=== PATIENT | male | born 1990 | race Hispanic/Latino ===

== ENCOUNTER 2017-01-12 10:45 | Emergency (ER) | payer BC, OTHER ==
[2017-01-12 11:25] VITALS: TEMP 98; O2SAT 99
[2017-01-12] MEDS ORDERED: Oxycodone/Acetaminophen 5/325 mg Tab PO STA (15:04)
--- NOTE | 2017-01-12 15:10 | ED PDOC ---
Lower Extremity Pain/Injury Time Seen by Provider: 01/12/17 11:47 Chief Complaint (Nursing): Lower Extremity Problem/Injury Chief Complaint (Provider): Left knee pain since last night History Per: Patient History/Exam Limitations: no limitations Onset/Duration Of Symptoms: Hrs Current Symptoms Are (Timing): Still Present Severity: Severe Pain Scale Rating Of: 9 Additional Complaint(s): Pt states he was playing basketball. States he had his foot planted and twisted. Pt reports a popping sensation inside. Pt has history of torn ACL. Pt states he already made an appointment with his orthopedic for next week. No medications for pain today. Past Medical History Reviewed: Historical Data, Nursing Documentation, Vital Signs Vital Signs: Last Vital Signs Temp 98 F 01/12/17 11:23 Pulse 65 01/12/17 11:23 Resp 20 01/12/17 11:23 BP 139/99 H 01/12/17 13:47 Pulse Ox 99 01/12/17 11:23 - Medical History PMH: No Chronic Diseases - Surgical History Surgical History: No Surg Hx - Family History Family History: States: Unknown Family Hx - Living Arrangements Living Arrangements: With Family - Social History Current smoker - smoking cessation education provided: No Alcohol: None Drugs: Denies - Home Medications Home Medications: Ambulatory Orders Medication Instructions Recorded oxyCODONE/Acetaminophen [Percocet 1 ea PO Q6H PRN #15 tab 01/12/17 5/325 mg Tab] - Allergies Allergies/Adverse Reactions: Allergies Allergy/AdvReac Type Severity Reaction Status Date / Time No Known Allergies Allergy Verified 01/12/17 11:22 Review of Systems ROS Statement: Except As Marked, All Systems Reviewed And Found Negative Musculoskeletal: Positive for: Other Physical Exam - Reviewed Nursing Documentation Reviewed: Yes Vital Signs Reviewed: Yes - Physical Exam Appears: Positive for: Well, Non-toxic, No Acute Distress Head Exam: Positive for: ATRAUMATIC, NORMAL INSPECTION, NORMOCEPHALIC Skin: Positive for: Normal Color, Warm, DRY Eye Exam: Positive for: Normal appearance ENT: Positive for: Normal ENT Inspection Neck: Positive for: Normal, Painless ROM Respiratory: Negative for: Accessory Muscle Use, Respiratory Distress Back: Positive for: Normal Inspection Extremity: Positive for: Normal ROM, Other ((+) anterior drawer, knee non- tender ) Neurologic/Psych: Positive for: Alert, Oriented - ECG O2 Sat by Pulse Oximetry: 99 Disposition - Clinical Impression Clinical Impression: Knee injury - Patient ED Disposition Is Patient to be Admitted: No Counseled Patient/Family Regarding: Diagnosis, Need For Followup, Rx Given - Disposition Referrals: formerly [facility] [Outside] Nelly Mistry MD [Staff Provider] - Disposition: Routine/Home Disposition Time: 15:27 Condition: GOOD Additional Instructions: Ice, elevation, motrin. Please follow-up with orthopedics. Prescriptions: oxyCODONE/Acetaminophen [Percocet 5/325 mg Tab] 1 ea PO Q6H PRN #15 tab PRN Reason: Pain, Severe (8-10) Instructions: ACL Injury (ED)
[2017-01-12] MEDS ORDERED: Oxycodone/Acetaminophen 5/325 mg Tab ONE (15:15)
[2017-01-12 15:29] VITALS: BP 143/79; PULSE 75; RESP 16
--- NOTE | 2017-01-12 16:05 | RAD ---
PROCEDURE: Left Knee Radiographs. HISTORY: Pain. COMPARISON: None. FINDINGS: BONES: No evidence of acute fracture or dislocation. Post surgical changes suggestive of prior cruciate ligament fixation. JOINTS: Normal. No osteoarthritis. JOINT EFFUSION: None. OTHER FINDINGS: None. IMPRESSION: No evidence of acute pathology.
== END 2017-01-12 16:27 | disposition home or self-care (01) ==
LOC: H.ER 10:45
DX: M25.562 Pain in left knee (principal)

== ENCOUNTER 2017-03-12 04:23 | Inpatient (IN) | payer BC ==
--- NOTE | 2017-03-12 04:46 | ED PDOC ---
Lower Extremity Pain/Injury Time Seen by Provider: 03/12/17 04:30 Chief Complaint (Nursing): Lower Extremity Problem/Injury Chief Complaint (Provider): Lower Extremity Problem/Injury History Per: Patient History/Exam Limitations: no limitations Onset/Duration Of Symptoms: Days Current Symptoms Are (Timing): Still Present Additional Complaint(s): 27 y/o male who presents to the emergency with a complaint of a left knee pain status post left knee surgery on February 24, [address] Jack (Orthopedist). Associated with swelling and pain to the site. Patient was seen at ED in [facility] in [place], [place] and found to have an infection on operative site. Reports having a knee aspiration with fluid analysis consistent with a wound infection. Denies vomiting, diarrhea, fever, cough, shortness of breath, and chest pain. Of note, patient received antibiotics: vancomycin, ancef, and gentamicin at the referring facility for the left knee wound infection status post operation. Past Medical History Reviewed: Historical Data, Nursing Documentation, Vital Signs Vital Signs: Last Vital Signs Temp 97.7 F 03/12/17 04:29 Pulse 103 H 03/12/17 04:29 Resp 16 03/12/17 04:29 BP 154/76 H 03/12/17 04:29 Pulse Ox 98 03/12/17 04:29 - Medical History PMH: No Chronic Diseases - Surgical History Other surgeries: Left knee surgery - Family History Family History: States: No Known Family Hx - Social History Current smoker - smoking cessation education provided: No Alcohol: None Drugs: Denies - Home Medications Home Medications: Ambulatory Orders Medication Instructions Recorded oxyCODONE/Acetaminophen [Percocet 1 ea PO Q6H PRN #15 tab 01/12/17 5/325 mg Tab] - Allergies Allergies/Adverse Reactions: Allergies Allergy/AdvReac Type Severity Reaction Status Date / Time vancomycin Allergy RASH Verified 03/12/17 13:05 Review of Systems ROS Statement: Except As Marked, All Systems Reviewed And Found Negative Constitutional: Negative for: Fever Cardiovascular: Negative for: Chest Pain Respiratory: Negative for: Cough, Shortness of Breath Gastrointestinal: Negative for: Vomiting, Diarrhea Musculoskeletal: Positive for: Leg Pain (with swelling), Other (Left knee pain) Physical Exam - Reviewed Nursing Documentation Reviewed: Yes Vital Signs Reviewed: Yes - Physical Exam Appears: Positive for: Non-toxic, No Acute Distress Head Exam: Positive for: ATRAUMATIC, NORMOCEPHALIC Cardiovascular/Chest: Positive for: Tachycardia Extremity: Positive for: Other (dressing to left knee noted to have serosanguinous drainage) Neurologic/Psych: Positive for: Alert, Oriented - ECG O2 Sat by Pulse Oximetry: 98 (RA) Pulse Ox Interpretation: Normal Medical Decision Making Medical Decision Making: Time: 04:30 Initial impression: 27 y/o male with left knee pain Initial plan: --Dextrose 5%/0.45% NS 1L 1,000 ml IV 125 mls/hr --IV Insertion --Case discussed with Dr. Jakc who had previously accepted patient at this facility for left knee post op infection wash out --Dr. Jack is on schedule for AM Wash out of the Left knee at 6:30 am. --Admitted to hospital as Inpatient to Med/Surg for Left Knee Post Operative Wound Infection under service Dr. Charline Merino (admitting hospitalist). Scribe Attestation: Documented by July Reynolds, acting as a scribe for Slava Maddox MD. Provider Scribe Attestation: All medical record entries made by the Scribe were at my direction and personally dictated by me. I have reviewed the chart and agree that the record accurately reflects my personal performance of the history, physical exam, medical decision making, and the department course for this patient. I have also personally directed, reviewed, and agree with the discharge instructions and disposition. Disposition - Clinical Impression Clinical Impression: Postoperative infection of knee - Patient ED Disposition Is Patient to be Admitted: Yes - Disposition Disposition Time: 04:30 Condition: FAIR - Pt Status Changed To: Hospital Disposition Of: Inpatient - Admit Certification Admit to Inpatient:: After my assessment, the patient will require hospitalization for at least two midnights. This is because of the severity of symptoms shown, intensity of services needed, and/or the medical risk in this patient being treated as an outpatient. - POA Present On Arrival: Surgical Site Infection (left knee)
[2017-03-12] MEDS: Dextrose 5%/0.45% NS 1,000 ML IV SCH ×2 (05:19→13:19)
--- NOTE | 2017-03-12 05:28 | CP.PCM.HP ---
History of Present Illness - History of Present Illness History of Present Illness: CC: L knee pain HPI: This is a 27 y/o male with no chronic medical conditions who states that he has an ACL injury pending surgery. He had gone in for a staging and removal of meniscus ~02/24. The initial procedure went without complications, but then he noted that the surgical incision had opened up slightly about mid week last week. At the time he had no problem, but since yesterday zane he noted some pain in the area and swelling. While he was riding the train last night, the pain and swelling became significantly worse and was accompanied by chills, but no fever, so he went into [facility]. He was given IV Vanc, gent, and ancef there and transferred here. Here he has no new complaints. Denies any f/c/ n/v/d. Pain is controlled. ROS: 14 systems reviewed, negative other than HPI MHx: None SHx: ACL repair of same knee in the past, recent meniscus surgery/staging Allergies: NKDA Medications: Ativan PRN Family Hx: Gout in father Social Hx: Lives with roommate, no significant EtOH (socially), no tobacco Present on Admission - Present on Admission Any Indicators Present on Admission: No Past Patient History - Past Social History Alcohol: None Drugs: Denies - PSYCHIATRIC Hx Substance Use: No - SURGICAL HISTORY Hx Surgeries: Yes Other/Comment: ACLS repair to left knee - ANESTHESIA Hx Anesthesia: Yes Hx Anesthesia Reactions: No Hx Malignant Hyperthermia: No Meds Allergies/Adverse Reactions: Allergies Allergy/AdvReac Type Severity Reaction Status Date / Time No Known Allergies Allergy Verified 01/12/17 11:22 Physical Exam - Constitutional Appears: No Acute Distress - Head Exam Head Exam: ATRAUMATIC, NORMOCEPHALIC - Eye Exam Eye Exam: EOMI, PERRL - ENT Exam ENT Exam: Mucous Membranes Moist - Neck Exam Neck exam: Positive for: Full Rom - Respiratory Exam Respiratory Exam: Clear to Auscultation Bilateral, NORMAL BREATHING PATTERN - Cardiovascular Exam Cardiovascular Exam: REGULAR RHYTHM, +S1, +S2 - GI/Abdominal Exam GI & Abdominal Exam: Normal Bowel Sounds, Soft - Extremities Exam Extremities exam: Positive for: joint swelling, tenderness Additional comments: L knee with swelling, tenderness, warmth, limited ROM - Neurological Exam Neurological exam: Alert, CN II-XII Intact, Oriented x3 - Psychiatric Exam Psychiatric exam: Normal Affect, Normal Mood - Skin Additional comments: warmth over L knee Results - Vital Signs Recent Vital Signs: Last Vital Signs Temp 97.7 F 03/12/17 04:29 Pulse 103 H 03/12/17 04:29 Resp 16 03/12/17 04:29 BP 154/76 H 03/12/17 04:29 Pulse Ox 98 03/12/17 05:21 Assessment & Plan (1) Infection of left knee Assessment and Plan: 27 y/o male with L knee infection in setting of recent surgery. -ADmit med-surg, pending OR this AM -Pain mgmt -Patient rec'd Vanc, ancef, gentamycin at other hospital, will consult ID for post-op antibiotic recommendations (Curtis) -Surgery aware (Guero) -No DVT PPx as this time, as pending surgery this AM Status: Acute (2) DVT prophylaxis Status: Acute
[2017-03-12] MEDS ORDERED: Midazolam 2 MG/2 ML VIAL ONE (06:40)
[2017-03-12] MEDS ORDERED: Propofol 10 mg/ml Inj (20 ML) ONE ×2 (06:40→07:12)
[2017-03-12] MEDS ORDERED: Succinylcholine 200 mg/10 ml Inj IV ONE (06:41)
[2017-03-12] MEDS ORDERED: Bupivacaine 0.5% Inj(30mL) ONE (06:41)
[2017-03-12] MEDS ORDERED: Lidocaine 1% Inj (20ml) ONE (06:41)
[2017-03-12] MEDS ORDERED: Lactated Ringer's 1,000 ML IV ONE (08:00)
[2017-03-12] MEDS ORDERED: Gentamicin 100mg/100ml NS 100 MG/100 ML BAG IVPB SCH (09:00)
[2017-03-12] MEDS: HYDROmorphone 0.5 mg/0.5 ml ISec IVP PRN ×2 (09:05→09:20)
--- NOTE | 2017-03-12 09:29 | CON ---
DATE: 03/12/2017 HISTORY OF PRESENT ILLNESS: The patient is a 27-year-old male who had an ACL injury. The patient szymanski d a history of ACL reconstruction by another orthopedist approximately 7 years ago. The patient unde rwent revision ACL by me 2 weeks ago. At that point due to malpositioning of a tunnel, we had to sta ge the procedure. The patient underwent partial meniscectomy and also allograft bone plug for the ti bial tunnel. The patient reports that, a few days ago, he fell onto his left knee. He had slight jaramillo perficial opening of the wound. The patient was seen by me on Tuesday, 2 days ago, in the clinic w hen the wound was closed and there was no drainage. There was no sign of infection and no fever or c hills. The patient had no difficulty bearing weight and had full range of motion. The wound was hany aned and Steri-Strips were applied. The patient was instructed to remain weightbearing. Afterwards, the patient tried to call office yesterday that he had worsening of the left knee pain symptoms and there was increased amount of drainage in the left knee. The patient was instructed to go to local E mergency Room. The knee was aspirated and showed 66,000 cell count consistent with septic arthritis at that point. The patient was transferred back to [facility] for admission a nd arthroscopic drainage and removal of bone plug. PHYSICAL EXAMINATION: GENERAL: The patient is comfortable. EXTREMITIES: There is swelling of the knee. There is drainage from the tibial tunnel site. Limited range of motion secondary to pain. Neurovascularly intact distally. ASSESSMENT AND PLAN: A 27-year-old male with postoperative septic arthritis. TREATMENT: I had a detailed discussion with the patient and his mother at bedside, explaining the co mplex nature of this injury. We will plan for left knee arthroscopy, irrigation and debridement, rem oval of bone plug and all foreign bodies and all indicated procedures. The risks include, but are no t limited to bleeding, infection, nerve/vessel damage, continued pain, stiffness, continued persisten t infection, need for further surgery among others. They fully understood the risks and the benefit and opted to proceed. Mark Anthony Jack MD cc: [id number] TT: 03/12/2017 09:28:16 Confirmation # [id number] Dictation # [id number] tn
--- NOTE | 2017-03-12 11:02 | OP ---
PROCEDURE DATE: 03/12/2017 ATTENDING PHYSICIAN: Mark Anthony Jack MD. DESKTOP ADMINISTRATOR: None. PREOPERATIVE DIAGNOSIS: Left knee septic arthritis. POSTOPERATIVE DIAGNOSIS: Left knee septic arthritis. PROCEDURE PERFORMED: 1. Left knee arthroscopic major synovectomy. 2. Removal of foreign body. 3. Irrigation and debridement. 4. Removal of infected bone graft. ANESTHESIA: General. ESTIMATED BLOOD LOSS: 10 mL. COMPLICATIONS: None. HISTORY: The patient is a 44-orcg-mlq-male who underwent a left knee arthroscopy, bone plug of tibial tunnel, partial medial lateral meniscectomy 2 weeks ago. The patient had an uneventful postoperative course until he fell and had a slight dehiscence with a superficial wound. The patient was seen by me a few days ago in the office on Tuesday. The wound was closed, with no drainage. A Steri-Strip was applied. The patient was instructed to be weightbearing as tolerated. The patient had called my office yesterday with increasing amount of pain and drainage from the wound site. At that point I had instructed the patient to visit a local emergency room. The patient went to the local emergency room and the knee aspirate was consistent with left knee septic arthritis. At that point, patient was transferred to [facility] for irrigation and debridement and removal of the bone plug. I reviewed the risks and benefits of the surgery in detail. The risks included but were not limited to bleeding, infection, neuro vessel damage, continued pain , continued infection, need for further surgery, stiffness blood clot, among others. The patient fully understood the risks and the benefits and opted to proceed with the surgery. DESCRIPTION OF PROCEDURE: The patient was brought to operating room table. He underwent general anesthesia. A padded tourniquet was applied to patient's left thigh. The left knee was secured in the leg timmons, left knee was prepped and draped in standard sterile manner. First a timeout was completed, confirmed the patient's left knee to be the correct operative site. First using an Esmarch, the knee was exsanguinated and the tourniquet was inflated to 300 mmHg. First using the old incision and portals, we took 4 sets of cultures for identification of the organism. There was anton pus upon opening of the previous portal. The arthroscope was placed into the joint and there was noted to be extensive tricompartmental synovitis and purulent fluid. Using an aggressive shaver, an extensive synovectomy of all 3 compartments was performed. All the purulent material was drained. The joint was irrigated with nearly 12 L of normal saline. For removal of the bone plug, a guide pin was drilled into the previous tibial tunnel and using the 12 mm reamer the tibial tunnel was drilled and allograft bone plug was removed. Finally we washed the joint with extra 6 L of fluid until all the synovium and infected material was removed. A BETTY drain was placed. The portals were closed using 4- 0 nylon sutures. The tibial tunnel incision was closed using 3-0 PDS and 3-0 nylon sutures. A sterile dressing was applied. Tourniquet was deflated. The patient was placed in a knee immobilizer. His postoperative instructions included weightbearing as tolerated with the knee in a knee immobilizer. There were no complications of surgery. Mark Anthony Jack MD cc: [id number] TT: 03/12/2017 11:01:20 jn MTDD
[2017-03-12] MEDS ORDERED: DiphenhydrAMINE 50 mg/ml Inj IVP PRN (11:14)
[2017-03-12] MEDS: Cefepime 1 GM in Sodium Chloride 0.9% 100 ML IVPB SCH ×2 (13:18→20:11)
[2017-03-12 19:54] LABS: RBC URINE 3 /hpf (0-3); URINE BACTERIA RARE (<OCC); URINE BILIRUBIN NEGATIVE (NEGATIVE); URINE BLOOD NEGATIVE (NEGATIVE); URINE COLOR YELLOW (YELLOW); URINE GLUCOSE (UA) NEG (Normal); URINE KETONE NEGATIVE (NEGATIVE); URINE LEUKOCYTE ESTERASE NEG Leu/uL (Negative); URINE PROTEIN NEGATIVE (NEGATIVE); URINE UROBILINOGEN 0.2-1.0 mg/dL (0.2-1.0); WBC URINE 2 /hpf (0-5)
[2017-03-13 08:11] LABS: BASO % 0.6 % (0.0-2.0); EOS % 0.6 % (0.0-4.0); HEMATOCRIT 38.5 % (35.0-51.0); LYMPH # 1.1 K/uL (1.0-4.3); LYMPH % 13.8 % (20.0-40.0); MEAN CELL VOLUME 94.2 fl (80.0-94.0); MEAN CORPUSCULAR HEMOGLOBIN 32.5 pg (27.0-31.0); MEAN CORPUSCULAR HGB CONC 34.6 g/dL (33.0-37.0); MEAN PLATELET VOLUME 7.1 fl (7.2-11.7); MONO # 1.1 K/uL (0.0-0.8); MONO % 14.5 % (0.0-10.0); NEUT # 5.4 K/uL (1.8-7.0); NEUT % 70.5 % (50.0-75.0); RED CELL DISTRIBUTION WIDTH 12.2 % (11.5-14.5); WHITE BLOOD COUNT 7.7 K/uL (4.8-10.8)
[2017-03-13 08:16] LABS: ALB/GLOB RATIO 1.5 (1.0-2.1); ALKALINE PHOSPHATASE 44 U/L (38-126); ALT/SGPT 34 U/L (21-72); AST/SGOT 28 U/L (17-59); BILIRUBIN,TOTAL 0.8 mg/dl (0.2-1.3); BLOOD UREA NITROGEN 9 mg/dl (9-20); CALCIUM 8.8 mg/dL (8.4-10.2); CARBON DIOXIDE 30 mmol/L (22-30); CHLORIDE 97 mmol/L (98-107); GFR AFRICAN-AMERICAN > 60; GLUCOSE,RANDOM 130 mg/dL (75-110); POTASSIUM 3.4 MMOL/L (3.6-5.0); SODIUM 136 mmol/l (132-148); TOTAL PROTEIN 6.7 G/DL (6.3-8.2)
[2017-03-13] MEDS: Cefepime 1 GM in Sodium Chloride 0.9% 100 ML IVPB SCH ×2 (08:52→20:30)
[2017-03-13] MEDS ORDERED: Potassium Chloride 20 mEq ER Tab PO ONE (09:40)
--- NOTE | 2017-03-13 14:24 | CP.PCM.CON ---
History of Present Illness - History of Present Illness History of Present Illness: 27 y/o male who presents to the emergency with a complaint of a left knee pain status post left knee surgery on February 24, [address] Jack (Orthopedist). Associated with swelling and pain to the site. Patient was seen at ED in [facility] in [place], [place] and found to have an infection on operative site. Reports having a knee aspiration with fluid analysis consistent with a wound infection. Denies vomiting, diarrhea, fever, cough, shortness of breath, and chest pain. Of note, patient received antibiotics: vancomycin, ancef, and gentamicin at the referring facility for the left knee wound infection status post operation. + HX OF LEFT KNEE INJURY IN [facility] UPON ADMISSION HERE UNDERWENT LEFT KNEE WASHOUT WITH CULTURES AND STARTED ON IV ANTIBIOTICS FOR PRESUMED SEPTIC ARTHRITIS REPORTEDLY DEVELOPED REDNESS ON RIGHT ARM WITH VANCO WHICH WAS HELD STARTED ON CUBICIN / CEFEPIME EMPIRICALLY PENDING CULTURES Review of Systems - Constitutional Constitutional: As Per HPI - EENT Eyes: absent: As Per HPI, Blind Spots, Blurred Vision, Change in Vision, Decreased Night Vision, Diplopia, Discharge, Dry Eye, Exophthalmos, Floaters, Irritation, Itchy Eyes, Loss of Peripheral Vision, Pain, Photophobia, Requires Corrective Lenses, Sees Flashes, Spots in Vision, Tunnel Vision, Other Visual Disturbances, Loss of Vision, Other Ears: absent: As Per HPI, Decreased Hearing, Ear Discharge, Ear Pain, Tinnitus, Abnormal Hearing, Disequilibrium, Dizziness, Other Nose/Mouth/Throat: absent: As Per HPI, Epistaxis, Nasal Congestion, Nasal Discharge, Nasal Obstruction, Nasal Trauma, Nose Pain, Post Nasal Drip, Sinus Pain, Sinus Pressure, Bleeding Gums, Change in Voice, Dental Pain, Dry Mouth, Dysphagia, Halitosis, Hoarsness, Lip Swelling, Mouth Lesions, Mouth Pain, Odynophagia, Sore Throat, Throat Swelling, Tongue Swelling, Facial Pain, Neck Pain, Neck Mass, Other - Cardiovascular Cardiovascular: absent: As Per HPI, Acrocyanosis, Chest Pain, Chest Pain at Rest , Chest Pain with Activity, Claudication, Diaphoresis, Dyspnea, Dyspnea on Exertion, Edema, Irregular Heart Rhythm, Pain Radiating to Arm/Neck/Jaw, Leg Edema, Leg Ulcers, Lightheadedness, Orthopnea, Palpitations, Paroxysmal Nocturnal Dyspnea, Pedal Edema, Radiating Pain, Rapid Heart Rate, Slow Heart Rate, Syncope, Other - Respiratory Respiratory: absent: As Per HPI, Cough, Dyspnea, Hemoptysis, Dyspnea on Exertion , Wheezing, Snoring, Stridor, Pain on Inspiration, Chest Congestion, Excessive Mucous Production, Change in Mucous Color, Pain with Coughing, Other - Gastrointestinal Gastrointestinal: absent: As Per HPI, Abdominal Pain, Belching, Bloating, Change in Bowel Habits, Change in Stool Character, Coffee Ground Emesis, Constipation, Cramping, Diarrhea, Dyspepsia, Dysphagia, Early Satiety, Excessive Flatus, Fecal Incontinence, Heartburn, Hematemesis, Hematochezia, Loose Stools, Melena, Nausea, Odynophagia, Temesmus, Vomiting, Other - Genitourinary Genitourinary: absent: As Per HPI, Change in Urinary Stream, Difficulty Urinating, Dysuria, Flank Pain, Hematuria, Pyuria, Nocturia, Urinary Incontinence, Urinary Frequency, Urinary Hesitance, Urinary Urgency, Voiding Freq/Small Amts, Freq UTI, Hx Renal/Bladder Calculi, Hx /Renal Surgery, Bladder Distension, Other - Musculoskeletal Musculoskeletal: As Per HPI - Integumentary Integumentary: absent: As Per HPI, Acne, Alopecia, Bleeding Lesions, Change in Hair, Change in Nails, Change in Pigmentation, Changing Lesions, Dry Skin, Erythema, Furuncle, Hirsutism, Lesions, New Lesions, Non-Healing Lesions, Photosensitivity, Pruritus, Rash, Skin Pain, Skin Ulcer, Sores, Striae, Swelling , Unusual Bruising, Wounds, Jaundice, Other - Neurological Neurological: absent: As Per HPI, Abnormal Gait, Abnormal Hearing, Abnormal Movements, Abnormal Speech, Behavioral Changes, Burning Sensations, Confusion, Convulsions, Disequilibrium, Dizziness, Numbness, Focal Weakness, Frequent Falls , Headaches, Lack of Coordination, Loss of Vision, Memory Loss, Paresthesias, Radicular Pain, Restless Legs, Sensory Deficit, Syncope, Tingling, Tremor, Vertigo, Weakness, Other Visual Disturbances, Other - Psychiatric Psychiatric: absent: As Per HPI, Abnormal Sleep Pattern, Anhedonia, Anxiety, Auditory Hallucinations, Behavioral Changes, Change in Appetite, Change in Libido, Confusion, Depression, Difficulty Concentrating, Hallucinations, Homicidal Ideation, Hopelessness, Irritability, Memory Loss, Mood Swings, Panic Attacks, Paranoia, Suicidal Ideation, Visual Hallucinations, Tactile Hallucinations, Other - Endocrine Endocrine: absent: As Per HPI, Change in Body Appearance, Change in Libido, Cold Intolorance, Deepening of Voice, Excessive Sweating, Fatigue, Flushing, Heat Intolorance, Increase in Ring/Shoe/Hat Size, Palpitations, Polydipsia, Polyphagia, Polyuria, Other - Hematologic/Lymphatic Hematologic: absent: As Per HPI, Easy Bleeding, Easy Bruising, Lymphadenopathy, Other Past Patient History - Past Medical History & Family History Past Medical History?: No - Past Social History Alcohol: None Drugs: Denies - HEMATOLOGICAL/ONCOLOGICAL Hx AIDS: No Hx Human Immunodeficiency Virus (HIV): No - MUSCULOSKELETAL/RHEUMATOLOGICAL Hx Falls: No - PSYCHIATRIC Hx Substance Use: No - SURGICAL HISTORY Hx Surgeries: Yes Hx Musculoskeletal Surgery: Yes (left knee acl repair 2010, and 02/24/17) Other/Comment: ACLS repair to left knee - ANESTHESIA Hx Anesthesia: Yes Hx Anesthesia Reactions: No Hx Malignant Hyperthermia: No Meds Allergies/Adverse Reactions: Allergies Allergy/AdvReac Type Severity Reaction Status Date / Time vancomycin Allergy RASH Verified 03/12/17 13:05 - Medications Medications: Current Medications Acetaminophen (Tylenol 325mg Tab) 650 mg PO Q4 PRN PRN Reason: Fever >100.4 F Last Admin: 03/13/17 11:24 Dose: 650 mg Diphenhydramine HCl (Benadryl) 25 mg IVP Q6 PRN PRN Reason: Rash Last Admin: 03/12/17 11:41 Dose: 25 mg Dextrose/Sodium Chloride (Dextrose 5%/0.45% Ns 1000 Ml) 1,000 mls @ 125 mls/hr IV .Q8H [facility] Last Admin: 03/12/17 13:19 Dose: 125 mls/hr Cefepime HCl 1 gm/ Sodium (Chloride) 100 mls @ 100 mls/hr IVPB Q12 [facility] Last Admin: 03/13/17 08:52 Dose: 100 mls/hr Daptomycin 570 mg/ Sodium (Chloride) 100 mls @ 100 mls/hr IVPB DAILY@1500 [facility] Stop: 03/17/17 11:46 Morphine Sulfate (Morphine) 2 mg IVP Q4 PRN PRN Reason: Pain, moderate (4-7) Last Admin: 03/12/17 20:08 Dose: 2 mg Morphine Sulfate (Morphine) 1 mg IVP Q4 PRN PRN Reason: Pain, Mild (1-3) Last Admin: 03/12/17 11:46 Dose: 1 mg Ondansetron HCl (Zofran Inj) 4 mg IVP Q6 PRN PRN Reason: Nausea/Vomiting Physical Exam - Constitutional Appears: Non-toxic - Head Exam Head Exam: ATRAUMATIC, NORMAL INSPECTION, NORMOCEPHALIC - Eye Exam Eye Exam: EOMI, PERRL. absent: Scleral icterus - ENT Exam ENT Exam: Mucous Membranes Dry, Normal External Ear Exam - Neck Exam Neck exam: Negative for: Lymphadenopathy - Respiratory Exam Respiratory Exam: Decreased Breath Sounds, Clear to Auscultation Bilateral - Cardiovascular Exam Cardiovascular Exam: REGULAR RHYTHM, +S1, +S2 - GI/Abdominal Exam GI & Abdominal Exam: Diminished Bowel Sounds, Soft. absent: Tenderness - Rectal Exam Rectal Exam: Deferred - Exam Exam: NORMAL INSPECTION - Extremities Exam Extremities exam: Positive for: pedal pulses present. Negative for: calf tenderness, normal inspection, pedal edema, tenderness Additional comments: LEFT KNEE WITH DRAIN IN PLACE - Back Exam Back exam: absent: CVA tenderness (L), CVA tenderness (R), paraspinal tenderness - Neurological Exam Neurological exam: Alert, CN II-XII Intact, Oriented x3, Reflexes Normal - Psychiatric Exam Psychiatric exam: Normal Affect, Normal Mood - Skin Skin Exam: Dry, Intact Results - Vital Signs Recent Vital Signs: Last Vital Signs Temp 100.6 F H 03/13/17 11:24 Pulse 97 H 03/13/17 07:43 Resp 20 03/13/17 07:43 BP 137/84 03/13/17 07:43 Pulse Ox 96 03/13/17 07:43 - Labs Result Diagrams: 03/13/17 05:30 03/13/17 05:30 Labs: Laboratory Results - last 24 hr 03/12/17 03/13/17 03/13/17 18:30 05:30 05:30 WBC 7.7 RBC 4.09 L Hgb 13.3 Hct 38.5 MCV 94.2 H MCH 32.5 H MCHC 34.6 RDW 12.2 Plt Count 209 MPV 7.1 L Neut % (Auto) 70.5 Lymph % (Auto) 13.8 L Starke % (Auto) 14.5 H Eos % (Auto) 0.6 Baso % (Auto) 0.6 Neut # 5.4 Lymph # 1.1 Starke # 1.1 H Eos # 0.0 Baso # 0.0 Sodium 136 Potassium 3.4 L Chloride 97 L Carbon Dioxide 30 Anion Gap 12 BUN 9 Creatinine 1.1 Est GFR ( Amer) > 60 Est GFR (Non-Af Amer) > 60 Random Glucose 130 H Calcium 8.8 Total Bilirubin 0.8 AST 28 ALT 34 Alkaline Phosphatase 44 Total Creatine Kinase 65 Total Protein 6.7 Albumin 3.9 Globulin 2.7 Albumin/Globulin Ratio 1.5 Urine Color Yellow Urine Clarity Clear Urine pH 5.0 Ur Specific [place] 1.020 Urine Protein Negative Urine Glucose (UA) Neg Urine Ketones Negative Urine Blood Negative Urine Nitrate Negative Urine Bilirubin Negative Urine Urobilinogen 0.2-1.0 Ur Leukocyte Esterase Neg Urine RBC (Auto) 3 Urine Microscopic WBC 2 Ur Squamous Epith Cells < 1 Urine Bacteria Rare Assessment & Plan (1) Infection of left knee Status: Acute (2) Postoperative infection of knee Status: Acute - Assessment and Plan (Free Text) Assessment: CONT IV ANTIBIOTICS PENDING CULTURES MAY NEED 21 DAYS RX FOR SEPTIC ARTHRITIS CONSIDER FOLLOW UP MRI TO R/O OM
--- NOTE | 2017-03-13 14:31 | CP.PCM.PCO ---
Physician Communication Note - Physician Communication Note Physician Communication Note: care transfered to dr. mason covered for dr rose
--- NOTE | 2017-03-13 16:03 | CP.PCM.PN ---
Subjective - Date & Time of Evaluation Date of Evaluation: 03/13/17 Time of Evaluation: 11:45 - Subjective Subjective: 27 yo M admitted with Left Knee Postoperative septic arthritis, s/p surgery day #1 Patient seen and examined at bedside, no acute distress at this time, pain well controlled. spiking low grade fever, Tmax: 100.6. Otherwise feeling well, denies: CP, SOB, calf pain, abdominal pain, N/V/D. ID was consulted Dr. Acevedo, Daptomycin and Cefepime ordered. ptaient had allergic reaction to Vancomycin reason why was changed to Daptomycin. Objective - Vital Signs/Intake and Output Vital Signs (last 24 hours): Temp Pulse Resp BP Pulse Ox 98.3 F 93 H 17 131/82 96 03/13/17 15:44 03/13/17 15:44 03/13/17 15:44 03/13/17 15:44 03/13/17 15:44 Intake and Output: 03/13/17 03/13/17 06:59 18:59 Intake Total 1900 Output Total 900 Balance 1000 - Medications Medications: Current Medications Acetaminophen (Tylenol 325mg Tab) 650 mg PO Q4 PRN PRN Reason: Fever >100.4 F Last Admin: 03/13/17 11:24 Dose: 650 mg Diphenhydramine HCl (Benadryl) 25 mg IVP Q6 PRN PRN Reason: Rash Last Admin: 03/12/17 11:41 Dose: 25 mg Dextrose/Sodium Chloride (Dextrose 5%/0.45% Ns 1000 Ml) 1,000 mls @ 125 mls/hr IV .Q8H [facility] Last Admin: 03/12/17 13:19 Dose: 125 mls/hr Cefepime HCl 1 gm/ Sodium (Chloride) 100 mls @ 100 mls/hr IVPB Q12 [facility] Last Admin: 03/13/17 08:52 Dose: 100 mls/hr Daptomycin 570 mg/ Sodium (Chloride) 100 mls @ 100 mls/hr IVPB DAILY@1500 [facility] Stop: 03/17/17 11:46 Last Admin: 03/13/17 14:59 Dose: 100 mls/hr Morphine Sulfate (Morphine) 2 mg IVP Q4 PRN PRN Reason: Pain, moderate (4-7) Last Admin: 03/12/17 20:08 Dose: 2 mg Morphine Sulfate (Morphine) 1 mg IVP Q4 PRN PRN Reason: Pain, Mild (1-3) Last Admin: 03/12/17 11:46 Dose: 1 mg Ondansetron HCl (Zofran Inj) 4 mg IVP Q6 PRN PRN Reason: Nausea/Vomiting - Labs Labs: 03/13/17 05:30 03/13/17 05:30 - Constitutional Appears: No Acute Distress - Head Exam Head Exam: ATRAUMATIC, NORMOCEPHALIC - Eye Exam Eye Exam: Normal appearance - ENT Exam ENT Exam: Mucous Membranes Moist - Respiratory Exam Respiratory Exam: Clear to Ausculation Bilateral. absent: Rhonchi, Wheezes, Respiratory Distress - Cardiovascular Exam Cardiovascular Exam: RRR, +S1, +S2. absent: JVD - GI/Abdominal Exam GI & Abdominal Exam: Soft, Normal Bowel Sounds. absent: Tenderness - Extremities Exam Extremities Exam: absent: Calf Tenderness, Pedal Edema Additional comments: Lef knee: knee inmobilizer, BETTY drain on place, minimal serosanguineous drainage noticed. neurovascular intact - Neurological Exam Neurological Exam: Alert, CN II-XII Intact, Oriented x3 - Psychiatric Exam Psychiatric exam: Normal Affect, Normal Mood - Skin Skin Exam: Dry, Normal Color, Warm Assessment and Plan - Assessment and Plan (Free Text) Plan: 27 y/o male with L knee infection in setting of recent surgery Left Knee postoperative septic arhtritis. s/p arthroscopic major synovectomy, day #1 -c/w Pain mgmt - Abx: Daptomycin ( day 2) and Cefepime( day 3) - ID on board Dr. Acevedo ( recommended total ABx course of 21 days) - Ortho Dr. Jack on board DVT prophylaxis SCD for now.
[2017-03-13] MEDS: Dextrose 5%/0.45% NS 1,000 ML IV SCH (21:01)
[2017-03-14 07:11] LABS: BASO % 0.4 % (0.0-2.0); EOS # 0.2 K/uL (0.0-0.7); EOS % 2.7 % (0.0-4.0); HEMATOCRIT 37.4 % (35.0-51.0); LYMPH # 1.5 K/uL (1.0-4.3); LYMPH % 20.7 % (20.0-40.0); MEAN CELL VOLUME 94.7 fl (80.0-94.0); MEAN CORPUSCULAR HEMOGLOBIN 32.6 pg (27.0-31.0); MEAN CORPUSCULAR HGB CONC 34.4 g/dL (33.0-37.0); MEAN PLATELET VOLUME 7.2 fl (7.2-11.7); MONO % 13.5 % (0.0-10.0); NEUT # 4.5 K/uL (1.8-7.0); NEUT % 62.7 % (50.0-75.0); RED CELL DISTRIBUTION WIDTH 12.8 % (11.5-14.5); WHITE BLOOD COUNT 7.1 K/uL (4.8-10.8)
[2017-03-14 07:31] LABS: ALB/GLOB RATIO 1.3 (1.0-2.1); ALKALINE PHOSPHATASE 45 U/L (38-126); ALT/SGPT 31 U/L (21-72); AST/SGOT 33 U/L (17-59); BILIRUBIN,TOTAL 0.8 mg/dl (0.2-1.3); BLOOD UREA NITROGEN 10 mg/dl (9-20); CALCIUM 9.1 mg/dL (8.4-10.2); CARBON DIOXIDE 30 mmol/L (22-30); CHLORIDE 99 mmol/L (98-107); GFR AFRICAN-AMERICAN > 60; GLUCOSE,RANDOM 95 mg/dL (75-110); POTASSIUM 4.1 MMOL/L (3.6-5.0); SODIUM 137 mmol/l (132-148)
[2017-03-14] MEDS: Cefepime 1 GM in Sodium Chloride 0.9% 100 ML IVPB SCH ×2 (08:56→21:36)
[2017-03-14] MEDS ORDERED: Docusate-Senna 50 mg-8.6 mg Tab PO SCH (10:42)
--- NOTE | 2017-03-14 10:44 | CP.PCM.PN ---
Subjective - Date & Time of Evaluation Date of Evaluation: 03/14/17 Time of Evaluation: 07:40 - Subjective Subjective: 27 yo M admitted with Left Knee Postoperative septic arthritis, s/p surgery day #2 Patient was seen and examined at bedside this morning. Patient reports that left knee pain is well controlled without pain medications, 10/26. Denies tingling, numbness in left lower extremity. Patient had a low grade fever of 99.8 F at midnight. Denies chills, nausea, vomiting, abdominal pain or other complains. Objective - Vital Signs/Intake and Output Vital Signs (last 24 hours): Temp Pulse Resp BP Pulse Ox 98.7 F 82 20 136/74 98 03/14/17 08:07 03/14/17 08:07 03/14/17 08:07 03/14/17 08:07 03/14/17 08:07 Intake and Output: 03/14/17 03/14/17 06:59 18:59 Intake Total 100 Balance 100 - Medications Medications: Current Medications Acetaminophen (Tylenol 325mg Tab) 650 mg PO Q4 PRN PRN Reason: Fever >100.4 F Last Admin: 03/13/17 11:24 Dose: 650 mg Diphenhydramine HCl (Benadryl) 25 mg IVP Q6 PRN PRN Reason: Rash Last Admin: 03/12/17 11:41 Dose: 25 mg Cefepime HCl 1 gm/ Sodium (Chloride) 100 mls @ 100 mls/hr IVPB Q12 [facility] Last Admin: 03/14/17 08:56 Dose: 100 mls/hr Daptomycin 570 mg/ Sodium (Chloride) 100 mls @ 100 mls/hr IVPB DAILY@1500 [facility] Stop: 03/17/17 11:46 Last Admin: 03/13/17 14:59 Dose: 100 mls/hr Morphine Sulfate (Morphine) 2 mg IVP Q4 PRN PRN Reason: Pain, moderate (4-7) Last Admin: 03/12/17 20:08 Dose: 2 mg Morphine Sulfate (Morphine) 1 mg IVP Q4 PRN PRN Reason: Pain, Mild (1-3) Last Admin: 03/12/17 11:46 Dose: 1 mg Ondansetron HCl (Zofran Inj) 4 mg IVP Q6 PRN PRN Reason: Nausea/Vomiting - Labs Labs: 03/14/17 06:30 03/14/17 06:30 - Additional Findings Additional findings: Constitutional Appears: No Acute Distress - Head Exam Head Exam: ATRAUMATIC, NORMOCEPHALIC - Eye Exam Eye Exam: Normal appearance - ENT Exam ENT Exam: Mucous Membranes Moist - Respiratory Exam Respiratory Exam: Clear to Ausculation Bilateral. absent: Rhonchi, Wheezes, Respiratory Distress - Cardiovascular Exam Cardiovascular Exam: RRR, +S1, +S2. absent: JVD - GI/Abdominal Exam GI & Abdominal Exam: Soft, Normal Bowel Sounds. absent: Tenderness - Extremities Exam Extremities Exam: absent: Calf Tenderness, Pedal Edema Additional comments: Lef knee: knee inmobilizer, BETTY drain on place, minimal serosanguineous drainage noticed. neurovascular intact - Neurological Exam Neurological Exam: Alert, CN II-XII Intact, Oriented x3 - Psychiatric Exam Psychiatric exam: Normal Affect, Normal Mood - Skin Skin Exam: Dry, Normal Color, Warm Assessment and Plan - Assessment and Plan (Free Text) Assessment: 27 yo M admitted with Left Knee Postoperative septic arthritis, s/p surgery day #2. Plan: Left Knee postoperative septic arhtritis. s/p arthroscopic major synovectomy, Day #2 -Improving -No leukocytosis. -c/w Pain management -Abx: Daptomycin ( day 3) and Cefepime( day 4) -May need 21 days treatment for septic arthritis as per ID recommendations -ID on board Dr. Acevedo -F/U wound cultures -Consider PICC line if terminal operations manager IV antibiotics -building and construction manager for possible IV antibiotics at home -Ortho Dr. Jack on board. F/U recommendations -PT evaluation DVT prophylaxis SCD for now. Consider starting Lovenox SC 40 mg
--- NOTE | 2017-03-14 13:23 | CP.PCM.PN ---
Subjective - Date & Time of Evaluation Date of Evaluation: 03/14/17 Time of Evaluation: 08:00 - Subjective Subjective: COMFORTABLE THIS AM DENIES FEVER CHILLS OR KNEE PAIN LEFT KNEE DRAIN IN PLACE WITH SOME SEROSANGUINOUS DISCHARGE FAMILY AT THE BEDSIDE Objective - Vital Signs/Intake and Output Vital Signs (last 24 hours): Temp Pulse Resp BP Pulse Ox 98.7 F 82 20 136/74 98 03/14/17 08:07 03/14/17 08:07 03/14/17 08:07 03/14/17 08:07 03/14/17 11:00 Intake and Output: 03/14/17 03/14/17 06:59 18:59 Intake Total 100 Balance 100 - Medications Medications: Current Medications Acetaminophen (Tylenol 325mg Tab) 650 mg PO Q4 PRN PRN Reason: Fever >100.4 F Last Admin: 03/13/17 11:24 Dose: 650 mg Diphenhydramine HCl (Benadryl) 25 mg IVP Q6 PRN PRN Reason: Rash Last Admin: 03/12/17 11:41 Dose: 25 mg Cefepime HCl 1 gm/ Sodium (Chloride) 100 mls @ 100 mls/hr IVPB Q12 [facility] Last Admin: 03/14/17 08:56 Dose: 100 mls/hr Daptomycin 570 mg/ Sodium (Chloride) 100 mls @ 100 mls/hr IVPB DAILY@1500 [facility] Stop: 03/17/17 11:46 Last Admin: 03/13/17 14:59 Dose: 100 mls/hr Morphine Sulfate (Morphine) 2 mg IVP Q4 PRN PRN Reason: Pain, moderate (4-7) Last Admin: 03/12/17 20:08 Dose: 2 mg Morphine Sulfate (Morphine) 1 mg IVP Q4 PRN PRN Reason: Pain, Mild (1-3) Last Admin: 03/12/17 11:46 Dose: 1 mg Ondansetron HCl (Zofran Inj) 4 mg IVP Q6 PRN PRN Reason: Nausea/Vomiting Senna/Docusate Sodium (Senokot S 50 Mg-8.6 Mg) 2 tab PO HS [facility] - Labs Labs: 03/14/17 06:30 03/14/17 06:30 - Constitutional Appears: Non-toxic - Head Exam Head Exam: ATRAUMATIC, NORMAL INSPECTION, NORMOCEPHALIC - Eye Exam Eye Exam: EOMI, PERRL. absent: Scleral icterus - ENT Exam ENT Exam: Mucous Membranes Dry, Normal External Ear Exam - Neck Exam Neck Exam: absent: Lymphadenopathy - Respiratory Exam Respiratory Exam: Decreased Breath Sounds, Clear to Ausculation Bilateral - Cardiovascular Exam Cardiovascular Exam: REGULAR RHYTHM, +S1, +S2 - GI/Abdominal Exam GI & Abdominal Exam: Distended, Soft. absent: Tenderness - Rectal Exam Rectal Exam: Deferred - Exam Exam: NORMAL INSPECTION - Extremities Exam Extremities Exam: absent: Calf Tenderness, Pedal Edema, Tenderness - Back Exam Back Exam: absent: CVA tenderness (L), CVA tenderness (R), paraspinal tenderness - Neurological Exam Neurological Exam: Alert, Awake, CN II-XII Intact, Oriented x3 - Psychiatric Exam Psychiatric exam: Normal Mood - Skin Skin Exam: Dry, Intact Assessment and Plan (1) Infection of left knee Status: Acute (2) Postoperative infection of knee Status: Acute - Assessment and Plan (Free Text) Assessment: SEPTIC ARTHRITIS IMPROVING S/P WASHOUT INITIAL CULTURE + MSSA ( COULD GO HOME ON ANCEF 2G TID OR CUBICIN ONCE DAILY ) MAY NEED FURTHER WASHOUT TO DISCUSS WITH ORTHO
[2017-03-15] MEDS: Cefepime 1 GM in Sodium Chloride 0.9% 100 ML IVPB SCH (08:51)
--- NOTE | 2017-03-15 10:48 | CP.PCM.PN ---
Subjective - Date & Time of Evaluation Date of Evaluation: 03/15/17 Time of Evaluation: 08:00 - Subjective Subjective: less pain no fever for d/c home on IV rx follow up as out pt Objective - Vital Signs/Intake and Output Vital Signs (last 24 hours): Temp Pulse Resp BP Pulse Ox 98.5 F 79 20 116/73 97 03/15/17 08:29 03/15/17 08:29 03/15/17 08:29 03/15/17 08:29 03/15/17 08:29 Intake and Output: 03/15/17 03/15/17 06:59 18:59 Intake Total 100 Balance 100 - Medications Medications: Current Medications Acetaminophen (Tylenol 325mg Tab) 650 mg PO Q4 PRN PRN Reason: Fever >100.4 F Last Admin: 03/13/17 11:24 Dose: 650 mg Diphenhydramine HCl (Benadryl) 25 mg IVP Q6 PRN PRN Reason: Rash Last Admin: 03/12/17 11:41 Dose: 25 mg Cefepime HCl 1 gm/ Sodium (Chloride) 100 mls @ 100 mls/hr IVPB Q12 [facility] Last Admin: 03/15/17 08:51 Dose: 100 mls/hr Daptomycin 570 mg/ Sodium (Chloride) 100 mls @ 100 mls/hr IVPB DAILY@1500 [facility] Stop: 03/17/17 11:46 Last Admin: 03/14/17 15:44 Dose: 100 mls/hr Morphine Sulfate (Morphine) 2 mg IVP Q4 PRN PRN Reason: Pain, moderate (4-7) Last Admin: 03/12/17 20:08 Dose: 2 mg Morphine Sulfate (Morphine) 1 mg IVP Q4 PRN PRN Reason: Pain, Mild (1-3) Last Admin: 03/12/17 11:46 Dose: 1 mg Ondansetron HCl (Zofran Inj) 4 mg IVP Q6 PRN PRN Reason: Nausea/Vomiting Senna/Docusate Sodium (Senokot S 50 Mg-8.6 Mg) 2 tab PO HS [facility] Last Admin: 03/14/17 21:37 Dose: Not Given - Labs Labs: 03/14/17 06:30 03/14/17 06:30 - Constitutional Appears: Non-toxic, Chronically Ill - Head Exam Head Exam: NORMOCEPHALIC - Eye Exam Eye Exam: PERRL. absent: Scleral icterus - ENT Exam ENT Exam: Mucous Membranes Dry - Neck Exam Neck Exam: absent: Lymphadenopathy - Respiratory Exam Respiratory Exam: Decreased Breath Sounds, Clear to Ausculation Bilateral - Cardiovascular Exam Cardiovascular Exam: REGULAR RHYTHM, +S1, +S2 - GI/Abdominal Exam GI & Abdominal Exam: Distended, Soft. absent: Tenderness - Rectal Exam Rectal Exam: Deferred - Exam Exam: NORMAL INSPECTION - Extremities Exam Extremities Exam: absent: Calf Tenderness, Pedal Edema - Back Exam Back Exam: absent: CVA tenderness (L), CVA tenderness (R) - Neurological Exam Neurological Exam: Alert, Awake, Oriented x3 Assessment and Plan (1) Infection of left knee Status: Acute (2) Postoperative infection of knee Status: Acute - Assessment and Plan (Free Text) Assessment: cont rx x 3 weeks
[2017-03-15] MEDS ORDERED: Lidocaine 1% Inj (20ml) ONE (10:55)
--- NOTE | 2017-03-15 11:16 | PCM.SURG1 ---
Surgeon's Initial Post Op Note - Surgeon's Notes Surgeon: Kathy Short Appliance Sales Associate: NONE Type of Anesthesia: Local Pre-Operative Diagnosis: Knee infection Operative Findings: Patent right basilic vein. Post-Operative Diagnosis: Knee infection Operation Performed: Single lumen picc placement right basilic vein, 41 cm. Tip in SVC. Specimen/Specimens Removed: none Estimated Blood Loss: EBL {In ML}: 2 Blood Products Given: N/A Drains Used: No Drains Post-Op Condition: Fair Date of Surgery/Procedure: 03/15/17 Time of Surgery/Procedure: 11:10
[2017-03-15 11:21] VITALS: BP 130/77; PULSE 76; RESP 18; TEMP 98.7; O2SAT 100
--- NOTE | 2017-03-15 12:37 | CP.PCM.DIS ---
<AgustinkristalEtta - Last Filed: 03/15/17 17:59> Provider - Provider Date of Admission: 03/12/17 04:37 Attending physician: Sherley Don MD Time Spent in preparation of Discharge (in minutes): 30 Diagnosis - Discharge Diagnosis (1) Infection of left knee Status: Acute Priority: High (2) Postoperative infection of knee Status: Acute Priority: High Hospital Course - Lab Results Lab Results: Micro Results 03/12/17 11:44 Knee - Left Gram Stain - Final 03/12/17 11:44 Knee - Left Wound Culture - Final Staphylococcus Aureus 03/12/17 11:44 Knee - Left Gram Stain - Final 03/12/17 11:44 Knee - Left Wound Culture - Final Staphylococcus Aureus 03/12/17 11:44 Knee - Left Gram Stain - Final 03/12/17 11:44 Knee - Left Wound Culture - Final Staphylococcus Aureus 03/12/17 11:44 Knee - Left Gram Stain - Final 03/12/17 11:44 Knee - Left Wound Culture - Final Staphylococcus Aureus Most Recent Lab Values WBC 7.1 K/uL (4.8-10.8) 03/14/17 06:30 RBC 3.95 Mil/uL (4.40-5.90) L 03/14/17 06:30 Hgb 12.9 g/dL (12.0-18.0) 03/14/17 06:30 Hct 37.4 % (35.0-51.0) 03/14/17 06:30 MCV 94.7 fl (80.0-94.0) H 03/14/17 06:30 MCH 32.6 pg (27.0-31.0) H 03/14/17 06:30 MCHC 34.4 g/dL (33.0-37.0) 03/14/17 06:30 RDW 12.8 % (11.5-14.5) 03/14/17 06:30 Plt Count 212 K/uL (130-400) 03/14/17 06:30 MPV 7.2 fl (7.2-11.7) 03/14/17 06:30 Neut % (Auto) 62.7 % (50.0-75.0) 03/14/17 06:30 Lymph % (Auto) 20.7 % (20.0-40.0) 03/14/17 06:30 [place] % (Auto) 13.5 % (0.0-10.0) H 03/14/17 06:30 Eos % (Auto) 2.7 % (0.0-4.0) 03/14/17 06:30 Baso % (Auto) 0.4 % (0.0-2.0) 03/14/17 06:30 Neut # 4.5 K/uL (1.8-7.0) 03/14/17 06:30 Lymph # 1.5 K/uL (1.0-4.3) 03/14/17 06:30 [place] # 1.0 K/uL (0.0-0.8) H 03/14/17 06:30 Eos # 0.2 K/uL (0.0-0.7) 03/14/17 06:30 Baso # 0.0 K/uL (0.0-0.2) 03/14/17 06:30 ESR 63 mm/hr (0-15) H 03/14/17 06:30 Sodium 137 mmol/l (132-148) 03/14/17 06:30 Potassium 4.1 MMOL/L (3.6-5.0) 03/14/17 06:30 Chloride 99 mmol/L (98-107) 03/14/17 06:30 Carbon Dioxide 30 mmol/L (22-30) 03/14/17 06:30 Anion Gap 13 (10-20) 03/14/17 06:30 BUN 10 mg/dl (9-20) 03/14/17 06:30 Creatinine 1.1 mg/dL (0.8-1.5) 03/14/17 06:30 Est GFR ( Amer) > 60 03/14/17 06:30 Est GFR (Non-Af Amer) > 60 03/14/17 06:30 Random Glucose 95 mg/dL (75-110) 03/14/17 06:30 Uric Acid 3.6 mg/Dl (3.5-8.5) 03/13/17 19:15 Calcium 9.1 mg/dL (8.4-10.2) 03/14/17 06:30 Total Bilirubin 0.8 mg/dl (0.2-1.3) 03/14/17 06:30 AST 33 U/L (17-59) 03/14/17 06:30 ALT 31 U/L (21-72) 03/14/17 06:30 Alkaline Phosphatase 45 U/L (38-126) 03/14/17 06:30 Total Creatine Kinase 65 U/L (55-170) 03/13/17 05:30 C-React Prot High Sens > 15.00 mg/L (1.00-3.00) H 03/14/17 06:30 Total Protein 7.0 G/DL (6.3-8.2) 03/14/17 06:30 Albumin 3.9 g/dL (3.5-5.0) 03/14/17 06:30 Globulin 3.1 gm/dL (2.2-3.9) 03/14/17 06:30 Albumin/Globulin Ratio 1.3 (1.0-2.1) 03/14/17 06:30 Urine Color Yellow (YELLOW) 03/12/17 18:30 Urine Clarity Clear (Clear) 03/12/17 18:30 Urine pH 5.0 (5.0-8.0) 03/12/17 18:30 Ur Specific [place] 1.020 (1.003-1.030) 03/12/17 18:30 Urine Protein Negative mg/dL (NEGATIVE) 03/12/17 18:30 Urine Glucose (UA) Neg mg/dL (Normal) 03/12/17 18:30 Urine Ketones Negative mg/dL (NEGATIVE) 03/12/17 18:30 Urine Blood Negative (NEGATIVE) 03/12/17 18:30 Urine Nitrate Negative (NEGATIVE) 03/12/17 18:30 Urine Bilirubin Negative (NEGATIVE) 03/12/17 18:30 Urine Urobilinogen 0.2-1.0 mg/dL (0.2-1.0) 03/12/17 18:30 Ur Leukocyte Esterase Neg Lori/uL (Negative) 03/12/17 18:30 Urine RBC (Auto) 3 /hpf (0-3) 03/12/17 18:30 Urine Microscopic WBC 2 /hpf (0-5) 03/12/17 18:30 Ur Squamous Epith Cells < 1 /hpf (0-5) 03/12/17 18:30 Urine Bacteria Rare (<OCC) 03/12/17 18:30 - Hospital Course Hospital Course: 27 y/o male with no significant past medical history, s/p Left Knee postoperative septic arhtritis, s/p arthroscopic major synovectomy on POD day 3. During admission patient was managed by Orthopedic, ID , and PMD. Wound culture was positive for MSSA and patient was managed with IV antibiotics as per ID recommendation. Patient was seen and examined at bedside this morning, and he was cleared by Ortho and ID to be discharged home in IV Daptomycin to complete 3 weeks of treatment as per ID recommendations. Patient got a PICC line today, and he tolerated procedure well. Will f/u with PMD, ID, and Ortho as outpatient. - Date & Time of H&P Date of H&P: 03/12/17 Time of H&P: 05:20 Discharge Exam - Eye Exam Eye Exam: Normal appearance - ENT Exam ENT Exam: Mucous Membranes Moist - Respiratory Exam Respiratory Exam: Clear to PA & Lateral, NORMAL BREATHING PATTERN - Cardiovascular Exam Cardiovascular Exam: REGULAR RHYTHM, +S1, +S2 - GI/Abdominal Exam GI & Abdominal Exam: Normal Bowel Sounds, Soft. absent: Distended, Guarding, Rigid, Tenderness - Additional Findings Additional findings: Constitutional Appears: No Acute Distress - Head Exam Head Exam: ATRAUMATIC, NORMOCEPHALIC - Eye Exam Eye Exam: Normal appearance - ENT Exam ENT Exam: Mucous Membranes Moist - Respiratory Exam Respiratory Exam: Clear to Ausculation Bilateral. absent: Rhonchi, Wheezes, Respiratory Distress - Cardiovascular Exam Cardiovascular Exam: RRR, +S1, +S2. absent: JVD - GI/Abdominal Exam GI & Abdominal Exam: Soft, Normal Bowel Sounds. absent: Tenderness - Extremities Exam Extremities Exam: absent: Calf Tenderness, Pedal Edema Additional comments: Lef knee: knee inmobilizer, BETTY drain on place, minimal serosanguineous drainage noticed. neurovascular intact - Neurological Exam Neurological Exam: Alert, CN II-XII Intact, Oriented x3 - Psychiatric Exam Psychiatric exam: Normal Affect, Normal Mood - Skin Skin Exam: Dry, Normal Color, Warm Discharge Plan - Discharge Medications Prescriptions: Acetaminophen [Tylenol 325mg tab] 650 mg PO Q6 PRN 14 Days PRN Reason: Pain, Moderate (4-7) DAPTOmycin [Cubicin] 570 mg IV DAILY 19 Days - Follow Up Plan Condition: GOOD Disposition: HOME/ ROUTINE Instructions: Peripherally Inserted Central Catheters and Midline Catheters ( GEN) Additional Instructions: -F/U with Jose Bustillos/ PMD in 1 week -F/U with Dr. Mark Anthony Jack as outpatient -F/U with ID doctor, Dr. Acevedo -ER precautions <Jose Ramos A - Last Filed: 03/16/17 06:56> Provider - Provider Date of Admission: 03/12/17 04:37 Attending physician: Sherley Don MD Hospital Course - Lab Results Lab Results: Micro Results 03/12/17 11:44 Knee - Left Gram Stain - Final 03/12/17 11:44 Knee - Left Wound Culture - Final Staphylococcus Aureus 03/12/17 11:44 Knee - Left Gram Stain - Final 03/12/17 11:44 Knee - Left Wound Culture - Final Staphylococcus Aureus 03/12/17 11:44 Knee - Left Gram Stain - Final 03/12/17 11:44 Knee - Left Wound Culture - Final Staphylococcus Aureus 03/12/17 11:44 Knee - Left Gram Stain - Final 03/12/17 11:44 Knee - Left Wound Culture - Final Staphylococcus Aureus Most Recent Lab Values WBC 7.1 K/uL (4.8-10.8) 03/14/17 06:30 RBC 3.95 Mil/uL (4.40-5.90) L 03/14/17 06:30 Hgb 12.9 g/dL (12.0-18.0) 03/14/17 06:30 Hct 37.4 % (35.0-51.0) 03/14/17 06:30 MCV 94.7 fl (80.0-94.0) H 03/14/17 06:30 MCH 32.6 pg (27.0-31.0) H 03/14/17 06:30 MCHC 34.4 g/dL (33.0-37.0) 03/14/17 06:30 RDW 12.8 % (11.5-14.5) 03/14/17 06:30 Plt Count 212 K/uL (130-400) 03/14/17 06:30 MPV 7.2 fl (7.2-11.7) 03/14/17 06:30 Neut % (Auto) 62.7 % (50.0-75.0) 03/14/17 06:30 Lymph % (Auto) 20.7 % (20.0-40.0) 03/14/17 06:30 [place] % (Auto) 13.5 % (0.0-10.0) H 03/14/17 06:30 Eos % (Auto) 2.7 % (0.0-4.0) 03/14/17 06:30 Baso % (Auto) 0.4 % (0.0-2.0) 03/14/17 06:30 Neut # 4.5 K/uL (1.8-7.0) 03/14/17 06:30 Lymph # 1.5 K/uL (1.0-4.3) 03/14/17 06:30 [place] # 1.0 K/uL (0.0-0.8) H 03/14/17 06:30 Eos # 0.2 K/uL (0.0-0.7) 03/14/17 06:30 Baso # 0.0 K/uL (0.0-0.2) 03/14/17 06:30 ESR 63 mm/hr (0-15) H 03/14/17 06:30 Sodium 137 mmol/l (132-148) 03/14/17 06:30 Potassium 4.1 MMOL/L (3.6-5.0) 03/14/17 06:30 Chloride 99 mmol/L (98-107) 03/14/17 06:30 Carbon Dioxide 30 mmol/L (22-30) 03/14/17 06:30 Anion Gap 13 (10-20) 03/14/17 06:30 BUN 10 mg/dl (9-20) 03/14/17 06:30 Creatinine 1.1 mg/dL (0.8-1.5) 03/14/17 06:30 Est GFR ( Amer) > 60 03/14/17 06:30 Est GFR (Non-Af Amer) > 60 03/14/17 06:30 Random Glucose 95 mg/dL (75-110) 03/14/17 06:30 Uric Acid 3.6 mg/Dl (3.5-8.5) 03/13/17 19:15 Calcium 9.1 mg/dL (8.4-10.2) 03/14/17 06:30 Total Bilirubin 0.8 mg/dl (0.2-1.3) 03/14/17 06:30 AST 33 U/L (17-59) 03/14/17 06:30 ALT 31 U/L (21-72) 03/14/17 06:30 Alkaline Phosphatase 45 U/L (38-126) 03/14/17 06:30 Total Creatine Kinase 65 U/L (55-170) 03/13/17 05:30 C-React Prot High Sens > 15.00 mg/L (1.00-3.00) H 03/14/17 06:30 Total Protein 7.0 G/DL (6.3-8.2) 03/14/17 06:30 Albumin 3.9 g/dL (3.5-5.0) 03/14/17 06:30 Globulin 3.1 gm/dL (2.2-3.9) 03/14/17 06:30 Albumin/Globulin Ratio 1.3 (1.0-2.1) 03/14/17 06:30 Urine Color Yellow (YELLOW) 03/12/17 18:30 Urine Clarity Clear (Clear) 03/12/17 18:30 Urine pH 5.0 (5.0-8.0) 03/12/17 18:30 Ur Specific [place] 1.020 (1.003-1.030) 03/12/17 18:30 Urine Protein Negative mg/dL (NEGATIVE) 03/12/17 18:30 Urine Glucose (UA) Neg mg/dL (Normal) 03/12/17 18:30 Urine Ketones Negative mg/dL (NEGATIVE) 03/12/17 18:30 Urine Blood Negative (NEGATIVE) 03/12/17 18:30 Urine Nitrate Negative (NEGATIVE) 03/12/17 18:30 Urine Bilirubin Negative (NEGATIVE) 03/12/17 18:30 Urine Urobilinogen 0.2-1.0 mg/dL (0.2-1.0) 03/12/17 18:30 Ur Leukocyte Esterase Neg Lori/uL (Negative) 03/12/17 18:30 Urine RBC (Auto) 3 /hpf (0-3) 03/12/17 18:30 Urine Microscopic WBC 2 /hpf (0-5) 03/12/17 18:30 Ur Squamous Epith Cells < 1 /hpf (0-5) 03/12/17 18:30 Urine Bacteria Rare (<OCC) 03/12/17 18:30 Attending/Attestation - Attestation I have personally seen and examined this patient.: Yes I have fully participated in the care of the patient.: Yes I have reviewed all pertinent clinical information, including history, physical exam and plan: Yes
--- NOTE | 2017-03-18 11:27 | VASCULAR ---
PROCEDURE: Date of procedure: 03/15/2017 Procedure: 1. Placement of a right arm PICC with ultrasound and fluoroscopic guidance, CPT 00398 2. PICC tip confirmation with spot radiograph and is in the superior vena cava Medications: 3 CC 1 percent lidocaine Total Fluoro time: 4 seconds Radiation: 2mGy EBL: 2 cc HISTORY: Infection requiring ferry terminal agent IV antibiotics TECHNIQUE: Following informed consent and procedure time-out, the patient was placed supine on the interventional table and the right arm prepped and draped in the usual sterile fashion. Ultrasound showed a patent and compressible right basilic vein. After the skin was anesthetized with lidocaine, the basilic vein was accessed with micro micropuncture technique using ultrasound guidance. A guidewire was then advanced under fluoroscopic guidance into the superior vena cava. An image documenting ultrasound guidance for vascular access was permanently saved. The length of the single-lumen 4 [place] PICC was trimmed to 41 centimeters and advanced through a peel-away sheath. The PICC was position with tip of PICC confirm a spot radiograph the superior vena cava. The PICC was secured to the patient's skin. The PICC was flushed. A biopatch and sterile dressing was applied. IMPRESSION: Placement of a single-lumen 4 [place] PICC trimmed to 41 centimeters via right basilic vein. The tip of the PICC is confirmed with spot radiograph and is in the superior vena cava.
== END 2017-03-15 18:17 | disposition home or self-care (01) | DRG 486 ==
LOC: H.ER 04:23 → H.ERHOLD 04:37 → H.MEDSURG1 06:11
PROVIDERS: ADMIT Family Medicine; ATTEND Family Medicine
PROC: 0SCD4ZZ Extirpation of Matter from Left Knee Joint, Percutaneous Endoscopic Approach (ICD-10-PCS; principal; 2017-03-12 07:00)
PROC: 0SBD4ZZ Excision of Left Knee Joint, Percutaneous Endoscopic Approach (ICD-10-PCS; 2017-03-12 07:00)
PROC: 02HV33Z Insertion of Infusion Device into Superior Vena Cava, Percutaneous Approach (ICD-10-PCS; 2017-03-14)
PROC: 3E04329 Introduction of Other Anti-infective into Central Vein, Percutaneous Approach (ICD-10-PCS; 2017-03-14)
DX: T84.7XXA Infection and inflammatory reaction due to other internal orthopedic prosthetic devices, implants and grafts, initial encounter (principal); M00.062 Staphylococcal arthritis, left knee; B95.61 Methicillin susceptible Staphylococcus aureus infection as the cause of diseases classified elsewhere; Y83.8 Other surgical procedures as the cause of abnormal reaction of the patient, or of later complication, without mention of misadventure at the time of the procedure; Y92.009 Unspecified place in unspecified non-institutional (private) residence as the place of occurrence of the external cause; Z88.1 Allergy status to other antibiotic agents

== ENCOUNTER 2017-07-05 07:53 | Day surgery (SDC) | payer BC ==
[2017-07-04 11:42] VITALS: BMI 30.4
[2017-07-05] MEDS ORDERED: Succinylcholine 200 mg/10 ml Inj IV ONE (10:42)
[2017-07-05] MEDS ORDERED: Propofol 10 mg/ml Inj (20 ML) ONE ×2 (10:42→11:31)
[2017-07-05] MEDS ORDERED: Rocuronium 10 mg/ml (5 ml) ONE (10:42)
[2017-07-05] MEDS ORDERED: Lidocaine Hydrochloride 5 ML INJ ONE (10:43)
[2017-07-05] MEDS ORDERED: Ropivacaine 0.5% 30ML IV ONE (10:45)
[2017-07-05] MEDS ORDERED: EPINEPHrine 1 mg/ml (1:1000) Inj ONE (10:53)
[2017-07-05] MEDS ORDERED: Midazolam 2 MG/2 ML VIAL ONE (11:25)
[2017-07-05] MEDS: Lactated Ringer's 1,000 ML IV ONE ×2 (11:25→12:00)
[2017-07-05] MEDS ORDERED: Lidocaine 2% w Epi 1:100,000 Inj IJ ONE (11:40)
[2017-07-05] MEDS ORDERED: Lidocaine 1% Inj (20ml) ONE (11:41)
[2017-07-05] MEDS ORDERED: Dexamethasone 4 mg/1 ml ONE (11:55)
[2017-07-05] MEDS ORDERED: Neostigmine Methylsulfate 2 MG/2 ML ML IV ONE (12:10)
[2017-07-05] MEDS ORDERED: Neostigmine Methylsulfate 3mg/3ml Syringe IV ONE (12:10)
--- NOTE | 2017-07-05 12:59 | PCM.SURG1 ---
Surgeon's Initial Post Op Note - Surgeon's Notes Surgeon: Mark Anthony Jack MD Game Design Instructor: Enrique Davalos PA-C Type of Anesthesia: General Endo Pre-Operative Diagnosis: Left knee ACL tear Operative Findings: see op report Post-Operative Diagnosis: same as pre-op dx Operation Performed: Left knee arthroscopy, debriedement and bone plug implantation Specimen/Specimens Removed: none Estimated Blood Loss: EBL {In ML}: 10 Date of Surgery/Procedure: 07/05/17 Time of Surgery/Procedure: 11:30
[2017-07-05] MEDS ORDERED: Oxycodone/Acetaminophen 5/325 mg Tab PO PRN (13:01)
[2017-07-05] MEDS ORDERED: HYDROmorphone 0.5 mg/0.5 ml ISec IVP PRN (13:08)
[2017-07-05] MEDS ORDERED: Lactated Ringer's 1,000 ML IV SCH (13:15)
[2017-07-05 13:24] VITALS: O2SAT 100
[2017-07-05 13:55] VITALS: PULSE 67
[2017-07-05 14:17] VITALS: RESP 18
[2017-07-05 15:08] VITALS: BP 137/89; TEMP 97.3
--- NOTE | 2017-07-05 23:46 | OP ---
PROCEDURE DATE: 07/05/2017 PREOPERATIVE DIAGNOSES: 1. Left knee anterior cruciate ligament tear and femoral tunnel cyst. 2. Left knee synovitis. POSTOPERATIVE DIAGNOSES: 1. Complete re-rupture of anterior cruciate ligament. 2. Major synovitis in medial and lateral compartment. 3. Tibial tunnel malpositioning and cyst formation from previous surgery. 4. Anterior patellofemoral adhesions. PROCEDURES: 1. Left knee arthroscopy and major synovectomy of medial and lateral compartment. 2. Drilling of the aberrant tibial tunnel. 3. Removal of loose bodies. 4. Allograft implantation of the tibial tunnel with the allograft bone block. 5. Anterior lysis of adhesions. SURGEON: Mark Anthony Jack MD HOGSHEAD FILLER: Enrique Davalos PA-C TYPE OF ANESTHESIA: General and femoral nerve block. ESTIMATED BLOOD LOSS: 5 mL COMPLICATIONS: None. SPECIMENS: None. INDICATIONS: The patient is a 27-year-old male who has undergone ACL reconstruction, in 2010 had a tear. The patient had undergone staging for the ACL with a bone block impaction; however, the patient's postoperative course was complicated by infection. He underwent a surgery to remove the bone blocks and underwent extensive debridement. The patient was seen in my office. The knee was aspirated and was clear of all the infection. At that point, I recommend to the patient due to the aberrant tunnel position, we will proceed with the bone block fixation to fill the defect with tibial tunnel and stage the ACL reconstruction. I reviewed the risks and benefits of the surgery with the patient in detail. The risk included, but not limited to bleeding, infection, nerve vessel damage, continued pain, instability, need for further surgery, among others. The patient fully understood the risks and benefits and opted to proceed. PROCEDURE: On the day of the surgery, the patient was admitted to preop holding area. A laterality sheet was completed confirming the patient's left knee as a correct operative site. The patient's left knee was marked. He was brought into the operating room table. He was given general anesthesia and femoral nerve block. The left knee was draped and prepped in a standard sterile manner. Tourniquet was applied. First, a timeout was completed confirming the patient's left knee to be the correct operative site. The patient's knee was exsanguinated and tourniquet was inflated to 250 mmHg. We utilized using 11 blade, a previous anterolateral portal was created and the camera was placed into the patellofemoral joint. There was multiple loose bodies noted, which were removed using the motorized shaver. Previous anteromedial portal was also utilized. There was extensive synovitis in medial and lateral compartment using the motorized shaver major synovectomy was performed and all the bleeding surfaces were coagulated. The previous incision for the tibial tunnel was made and a pin guide was drove into the previous tibial tunnel. Next, using the motorized reamer sequentially, tibial tunnel was drove up to 15 mm in diameter. To fill the defect of tibial tunnel, we utilized Arthrex allograft bone block of 15 mm x32 mm in length. The bone block was impacted using a guidewire and a mallet as it provided secure fit. The 15 mm bone block was used. Finally, the camera was placed into the joint and the excess bone was removed using the jimmy. All the loose bodies and debris were removed. All the instruments were removed. The portals were closed using nylon sutures and incision was closed using 2-0 Vicryl and nylon sutures. Sterile dressing was applied. Tourniquet was deflated. The patient was extubated. He was transferred to the stretcher and taken to the recovery room and there were no complications of surgery. Enrique Davalos is a certified physician assistant manager trainee, who was present for the entirety of the case as her participation was crucial in the patient's positioning, impaction of bone graft, retraction of critical neurovascular structure and successful completion of the surgery. Mark Anthony Jack MD
--- NOTE | 2017-07-06 14:00 | PCM.ANESB2 ---
Popliteal Nerve Block - Popliteal Nerve Block Date of Procedure: 07/05/17 Anesthesiologist: Shelbie Pre-Procedure Diagnosis: Left ACL Tear Post-Procedure Diagnosis: Same Procedure Performed: Popliteal Nerve Block Left - Procedure Popliteal Nerve Block: This procedure was explained to the patient that it is for post-operative pain management. Consent was obtained after a thorough discussion with the patient regarding the benefits and possible complications of local anesthetic block of the sciatic nerve at the popliteal level. The patient was brought to the operating room and standard monitors are applied. Time-out was held with the circulating nurse to confirm the correct surgery and the appropriate block. Under general anesthesia, patient's operative leg was gently raised and supported and the groove in between the biceps femoris and vastus lateralis muscles was carefully palpated. The skin approximately 8cm above the popliteal crease was then marked. The ultrasound transducer was then applied to the posterior thigh approximately 8cm above the popliteal crease in the transverse plane and the sciatic nerve before its division was visualized lateral to the popliteal artery and in between the bicep femoris and semimembranosus/ semitendinosus muscles. After identification, the lateral portion of the thigh was prepped with Chloraprep. At this point, a # 21 gauge Stimuplex insulated 4 inch needle was inserted into pre-marked area and advanced in a perpendicular direction. The needle was inserted above the ultrasound transducer in-plane towards the sciatic nerve in a [id number] direction. Needle advancement was performed carefully under direct ultrasound visualization. Nerve stimulator was used and dorsiflexion of the __left___ foot was elicited at a current of __0.4___ MA. After repeated negative aspiration, ___2__cc of ___0.5__ % ropivicaine was injected and this was flowed with __18____ cc of ___0.5___% ____ropivicaine ___. Under ultrasound guidance the local anesthetics were observed tenting the epidural sheath and surrounding the roots of the sciatic nerve. The needle was removed intact and sterile dressing was applied. The patient tolerated the popliteal nerve block well with stable vital signs and was subsequently prepared for the surgery.
--- NOTE | 2017-07-06 14:10 | PCM.ANESB3 ---
Femoral Nerve Block - Femoral Nerve Block Date of Procedure: 07/05/17 Anesthesiologist: Shelbie Pre-Procedure Diagnosis: Left ACL Tear Post-Procedure Diagnosis: Same Procedure Performed: Femoral Nerve Block Left - Procedure Femoral Nerve Block: The procedure was explained to the patient that it is for the post-operative pain management. Consent was obtained after a thorough discussion with the patient regarding the benefits and possible complications of local anesthetic block of the femoral nerve at the inguinal crease area. The patient was brought to the operating room and standard monitors were applied. Time-out was held with the circulating nurse to confirm the correct surgery and the appropriate block. Under general anesthesia, patient was placed in supine position with fully extended lower extremities and the __left groin exposed. The femoral artery was then carefully palpated. The ultrasound transducer was then applied to this area in the transverse plane and the femoral nerve was visualized lateral to the femoral artery and underneath the fascia iliaca. After thorough identification, the inguinal crease area was prepped with Chloraprep. At this point, a #22 gauge Stimuplex 2-inch needle was inserted immediately lateral to the femoral artery pulse at the inguinal crease and advanced perpendicularly. The needle was inserted to the ultrasound transducer in-plane towards the femoral nerve in a [id number] direction. Needle advancement was performed carefully under direct ultrasound visualization. Nerve stimulator was used and twitch of the quadriceps muscle was obtained at current of __0.4___ MA. After negative aspiration, ___2__cc of __0.5___% ropivicaine ____was injected and this was followed with ___18___ cc of ___0.5____ % ropivicaine . Under ultrasound guidance the local anesthetics were observed spreading below fascia iliaca and around the femoral nerve. The needle was removed intact and sterile dressing was applied. The patient tolerated the femoral nerve block well with stable vital signs and was prepared for subsequent surgery.
== END 2017-07-05 15:40 | disposition home or self-care (01) ==
LOC: H.OPSURG 07:53
PROVIDERS: ATTEND Orthopaedic Surgery
DX: M23.52 Chronic instability of knee, left knee (principal); M67.862 Other specified disorders of synovium, left knee; M65.862 Other synovitis and tenosynovitis, left lower leg; M23.8X2 Other internal derangements of left knee
CPT/HCPCS: 29876; 29884; 97161; C1713; G8978; G8979; G8980; J0171; J0330; J0690; J1100; J2250; J2405; J2704; J2710; J2765; J3010; J7030; J7120